=== PATIENT | female | born 1990 | race African-American/Black ===

== ENCOUNTER 2019-01-03 15:41 | Emergency (ER) | payer SELFPAY ==
[2019-01-03 15:53] VITALS: BP 109/69
--- NOTE | 2019-01-03 16:55 | UC ---
Dental HPI - HPI Summary HPI Summary: 28-year-old female with 6 weeks of discomfort from dental pedro now presents with fall smell from the area. She is also experiencing increased discomfort but no facial swelling. She has not had any fever. She is a smoker. She has an appointment upcoming with oral surgery but it is not for another month. She denies any trismus nausea or vomiting. - History of Current Complaint Chief Complaint: UCDentalProblem Stated Complaint: TOOTH ACHE Time Seen by Provider: 01/03/19 16:42 Hx Obtained From: Patient Hx Last Menstrual Period: 12/18/18 Pain Intensity: 10 - Allergies/Home Medications Allergies/Adverse Reactions: Allergies Allergy/AdvReac Type Severity Reaction Status Date / Time No Known Allergies Allergy Verified 03/26/15 11:45 PMH/Surg Hx/FS Hx/Imm Hx Previously Healthy: Yes - Surgical History Surgical History: Yes Surgery Procedure, Year, and Place: - Family History Known Family History: Positive: Non-Contributory - Social History Alcohol Use: Rare Substance Use Type: None Smoking Status (MU): Current Every Day Smoker Type: Cigarettes Amount Used/How Often: 3 CIGARETTES PER DAY - Length of Time of Smoking/Using Tobacco: 9 YEARS Have You Smoked in the Last Year: Yes - Immunization History Most Recent Influenza Vaccination: 09/03/13 Most Recent Tetanus Shot: 09/03/13 Most Recent Pneumonia Vaccination: n/a Review of Systems All Other Systems Reviewed And Are Negative: Yes Constitutional: Negative: Fever Skin: Negative: Rash, Bruising Eyes: Positive: Negative ENT: Positive: Dental Pain. Negative: Sore Throat, Ear Ache, Nasal Discharge, Sinus Congestion, Sinus Pain/Tenderness Respiratory: Positive: Negative Cardiovascular: Positive: Negative Is Patient Immunocompromised?: No Physical Exam Triage Information Reviewed: Yes Appearance: Well-Appearing, No Pain Distress, Well-Nourished Vital Signs: Initial Vital Signs Temp 98.3 F 01/03/19 15:49 Pulse 117 01/03/19 15:49 Resp 16 01/03/19 15:49 BP 109/69 01/03/19 15:49 Pulse Ox 100 01/03/19 15:49 Eyes: Positive: Conjunctiva Clear ENT: Positive: Other - Right upper second premolar is eroded to the gumline with slight gingival edema and a foul-smelling without any obvious drainage. No adjacent facial swelling. No adjacent lymphadenopathy.. Negative: Nasal congestion, Nasal drainage, Hoarse voice Dental: Negative: Cervical Lymphadenopathy, Bleeding Neck: Positive: Supple, Nontender Respiratory: Positive: Lungs clear Cardiovascular: Positive: RRR Musculoskeletal Exam: Normal Neurological Exam: Normal Skin: Negative: Rashes Dental Complaint Course/Dx - Course Course Of Treatment: Patient is currently on ibuprofen for discomfort. She was offered a dental block but refused. She will continue on Tylenol, ibuprofen. She'll be placed on 10 days of penicillin and given chlorhexidine mouthwash. She'll follow-up with oral surgery for removal. - Differential Dx/Diagnosis Differential Diagnosis/Dx: Dental Abscess, Dental Caries, Fractured Tooth, Peridontic Disease Provider Diagnosis: Dental abscess, Dental caries Discharge - Sign-Out/Discharge Documenting (check all that apply): Patient Departure All imaging exams completed and their final reports reviewed: No Studies - Discharge Plan Condition: Improved Disposition: HOME Prescriptions: Chlorhexidine MOUTHWASH 0.12%* [Peridex Mouth Wash 0.12%*] 15 ml .SEE ORDER TID 14 Days #1 bottle Penicillin VK 500 MG TAB(NF) [Penicillin VK 500 mg Tab] 500 mg PO QID #40 tab Patient Education Materials: Dental Abscess (ED) Referrals: Teagan Hannah MD [Primary Care Provider] - Additional Instructions: Follow-up with your oral surgeon as scheduled for tooth removal. Tylenol, ibuprofen as needed for discomfort. Return with fever, they show pain/swelling , worse, new symptoms or other concerns. - Billing Disposition and Condition Condition: IMPROVED Disposition: Home - Attestation Statements Document Initiated by Scribe: No
[2019-01-03] MEDS ORDERED: HYDROcodone/ACETAMIN 5-325 MG* 1 TAB PO ONE (17:03)
== END 2019-01-03 17:14 | disposition home or self-care (01) ==
LOC: UCEAST 15:41
DX: K04.7 Periapical abscess without sinus (principal); K02.9 Dental caries, unspecified; F17.210 Nicotine dependence, cigarettes, uncomplicated
CPT/HCPCS: 99212; G0463